=== PATIENT | female | born 1950 | race Caucasian/White ===

== ENCOUNTER 2016-07-20 07:07 | Day surgery (SDC) | payer BC, OTHER ==
[2016-07-19 13:56] VITALS: BMI 33.5
[2016-07-20] MEDS ORDERED: PROPOFOL 20 ML ONE ×3 (07:59)
[2016-07-20] MEDS ORDERED: LIDOCAINE HCL/PF 1% SDV 5ML VIAL ONE (07:59)
[2016-07-20 09:00] VITALS: TEMP 97.5
[2016-07-20 09:17] VITALS: PULSE 55
[2016-07-20 09:54] VITALS: BP 118/66
--- NOTE | 2016-07-23 11:19 | PATH ---
Surgical Pathology Report Patient Name: [facility]. Rec. #: [id number] /Age/Gender: 1950 (Age: 65) / F Account: [id number] Location: [facility]-ENDOSCOPY Taken: 07/20/2016 Received: 07/20/2016 Reported: 07/23/2016 Physicians: Zina Hodge M.D. Specimen(s) Received A: BX 2ND PORTION DUODENUM & BULB B: BX POLYPS GASTRIC FUNDUS C: BX ANTRUM D: BX DISTAL ESOPHAGUS Clinical History GERD, screening Hiatal hernia Final Diagnosis A. DUODENUM, SECOND PORTION, BIOPSY: DUODENAL MUCOSA WITH HETEROTOPIC GASTRIC MUCOSA AND MILD NONSPECIFIC CHRONIC INFLAMMATION. NO HISTOLOGIC EVIDENCE OF GLUTEN SENSITIVE ENTEROPATHY (CELIAC SPRUE) IDENTIFIED. B. STOMACH, FUNDUS, BIOPSY: GASTRIC MUCOSA WITH FOVEOLAR HYPERPLASIA IMMUNOSTAIN FOR H. PYLORI IS NEGATIVE. C. STOMACH, ANTRUM, BIOPSY: FOCAL MILD CHRONIC GASTRITIS. IMMUNOSTAIN FOR H. PYLORI IS NEGATIVE. D. DISTAL ESOPHAGUS, BIOPSY: SQUAMOUS EPITHELIUM WITH PAPILLOMATOSIS SUGGESTIVE OF REFLUX ESOPHAGITIS. NO INTESTINAL METAPLASIA IDENTIFIED (NO DRAPER'S IDENTIFIED). Electronically Signed Bryn Olivo M.D. Gross Description A. Received in formalin, labeled "biopsy second portion of duodenum/bulb" are 4 quan, irregular portions of soft tissue averaging 0.3 cm. in greatest dimension. The specimens are submitted in toto in one cassette. B. Received in formalin, labeled "biopsy polyps of gastric fundus" are 4 quan, irregular portions of soft tissue ranging from 0.1-0.3 cm. in greatest dimension. The specimens are submitted in toto in one cassette. C. Received in formalin, labeled "biopsy antrum" are 2 quan, irregular portions of soft tissue averaging 0.2 cm. in greatest dimension. The specimens are submitted in toto in one cassette. D. Received in formalin, labeled "biopsy distal esophagus" are 2 quan, irregular portions of soft tissue measuring 0.3 and 0.5 cm. in greatest dimension. The specimens are submitted in toto in one cassette. DL/07/20/2016 saudi07/20/2016
== END 2016-07-20 10:09 | disposition home or self-care (01) ==
LOC: JASU-ENDO 07:07
PROVIDERS: ATTEND Internal Medicine Gastroenterology
PROC: 0DB38ZX Excision of Lower Esophagus, Via Natural or Artificial Opening Endoscopic, Diagnostic (ICD-10-PCS; 2016-07-20)
PROC: 0DB68ZX Excision of Stomach, Via Natural or Artificial Opening Endoscopic, Diagnostic (ICD-10-PCS; 2016-07-20)
PROC: 0DB28ZX Excision of Middle Esophagus, Via Natural or Artificial Opening Endoscopic, Diagnostic (ICD-10-PCS; 2016-07-20)
PROC: 0DJD8ZZ Inspection of Lower Intestinal Tract, Via Natural or Artificial Opening Endoscopic (ICD-10-PCS; principal; 2016-07-20 08:00)
DX: Z12.11 Encounter for screening for malignant neoplasm of colon (principal); K57.30 Diverticulosis of large intestine without perforation or abscess without bleeding; K64.8 Other hemorrhoids; R10.13 Epigastric pain; R10.9 Unspecified abdominal pain; K21.9 Gastro-esophageal reflux disease without esophagitis; K44.9 Diaphragmatic hernia without obstruction or gangrene; K31.7 Polyp of stomach and duodenum; K31.89 Other diseases of stomach and duodenum
CPT/HCPCS: 43239; G0121; 88305-TC; 88342-TC

== ENCOUNTER 2017-05-30 20:12 | Emergency (ER) | payer BC, OTHER ==
[2017-05-30 21:34] VITALS: BP 135/73; PULSE 58; TEMP 98.4; BMI 31.1
--- NOTE | 2017-05-30 21:34 | PDOC ---
Rapid Medical Evaluation Chief Complaint: Head/Neck problem Time Seen by Provider: 05/30/17 21:31 Medical Evaluation: Allergies Allergy/AdvReac Type Severity Reaction Status Date / Time cortisone Allergy Verified 07/19/16 13:56 procaine HCl [From Novocain] AdvReac Verified 07/19/16 13:57 05/30/17 21:31 I Have performed a brief in-person evaluation of this patient. c/o trip and fall hit head on the pavement. currently on baby aspirin. no loc. pertinent physical exam findings: patient alert ox3, + frontal hematoma. no cervical tenderness I have ordered the following: Ct head the patient will proceed to the ED for further evaluation.
--- NOTE | 2017-05-30 22:52 | PDOC ---
History of Present Illness - General Chief Complaint: Injury Stated Complaint: FALL INJURY Time Seen by Provider: 05/30/17 21:31 History Source: Patient - History of Present Illness Initial Comments: 05/30/17 22:46 66 year old female c/o headache after trip and fall outside. denies loc Currently on everyday aspirin with hematoma to left frontal scalp. patient reports geberalized bodyache since fall at 8 pm. abrasion to left knee. full rom and weight bearing to left knee. Past History - Past Medical History Allergies/Adverse Reactions: Allergies Allergy/AdvReac Type Severity Reaction Status Date / Time cortisone Allergy Verified 05/30/17 21:32 procaine HCl [From Novocain] AdvReac Verified 05/30/17 21:32 Home Medications: Ambulatory Orders Aspirin [ASA -] 81 mg PO DAILY 07/19/16 Cholecalciferol (Vitamin D3) [Vitamin D3 -] 2,000 unit PO DAILY 07/19/16 Cyanocobalamin (Vitamin B-12) [Vitamin B12] 2,500 mcg PO DAILY 07/19/16 Escitalopram Oxalate [Lexapro -] 10 mg PO DAILY 07/19/16 Nebivolol [Bystolic -] 5 mg PO HS 07/19/16 Ranitidine [Zantac -] 150 mg PO BID 07/19/16 Rosuvastatin Calcium [Crestor] 5 mg PO ASDIR 07/19/16 Ubidecarenone/Vit E Acetate [Co Q-10 100 mg Softgel] 1 each PO DAILY 07/19/16 Valsartan/Hydrochlorothiazide [Valsartan-Hctz 80-12.5 mg Tab] 1 tab PO DAILY 11/28 Anemia: Yes (THALASSEMIA MINOR) Asthma: Yes (TRANSIENT) Cancer: No Cardiac Disorders: No CVA: No COPD: No CHF: No Dementia: No Diabetes: No GI Disorders: Yes (GERD) Disorders: (NEPHROLITHIASIS ESWL) HTN: Yes Hypercholesterolemia: Yes Liver Disease: Yes (FATTY LIVER) Seizures: No - Surgical History Abdominal Surgery: No Appendectomy: No Cardiac Surgery: No Cholecystectomy: No Lung Surgery: No Neurologic Surgery: No Orthopedic Surgery: Yes (LEFT ANKLE FRACTURE WITH HARDWARE 2006) - Suicide/Smoking/Psychosocial Hx Smoking History: Never smoked Have you smoked in the past 12 months: No Information on smoking cessation initiated: No Hx Alcohol Use: No Drug/Substance Use Hx: No Substance Use Type: None Hx Substance Use Treatment: No Review of Systems - Review of Systems Able to Perform ROS?: Yes Is the patient limited Turkmen proficient: No Constitutional: Yes: Symptoms Reported Neurological: Yes: Headache. No: Symptoms reported, See HPI, Numbness, Paresthesia, Pre-Existing Deficit, Seizure, Tingling, Tremors, Weakness, Unsteady Gait, Ataxia, Dizziness, Other *Physical Exam - Vital Signs Last Vital Signs Temp Pulse Resp BP Pulse Ox 98.4 F 58 L 14 135/73 98 05/30/17 21:32 05/30/17 21:32 05/30/17 21:32 05/30/17 21:32 05/30/17 21:32 - Physical Exam General Appearance: Yes: Appropriately Dressed HEENT: positive: Other (hematoma to left frontal scalp) Respiratory/Chest: positive: Lungs Clear, Normal Breath Sounds Cardiovascular: positive: Regular Rhythm, Regular Rate Extremity: positive: Normal Capillary Refill, Normal Inspection, Normal Range of Motion, Other (abrasion to left knee) Integumentary: positive: Normal Color, Dry, Warm ED Treatment Course - RADIOLOGY Radiology Studies Ordered: Category Date Time Status HEAD CT WITHOUT CONTRAST [CT] Stat CT Scan 05/30/17 21:34 Completed Progress Note - Progress Note Progress Note: A: head injury P: ct head: negative neuro exam. concussion precautions. *DC/Admit/Observation/Transfer Diagnosis at time of Disposition: Head injury Qualifiers: Encounter type: initial encounter Qualified Code(s): S09.90XA - Unspecified injury of head, initial encounter Mild concussion Qualifiers: Encounter type: initial encounter Loss of consciousness presence/duration: without LOC Qualified Code(s): S06.0X0A - Concussion without loss of consciousness, initial encounter - Discharge Dispostion Disposition: HOME - Referrals Referrals: Dennis Shaikh MD [Primary Care Provider] - Call tomorrow - Patient Instructions Printed Discharge Instructions: DI for Closed Head Injury Additional Instructions: rest and relax as much as possible. follow up with your doctor as soon as possible. return to the ER if symptoms worsen. - Post Discharge Activity
== END 2017-05-30 23:48 | disposition home or self-care (01) ==
LOC: JERFT 20:12 → JER 20:12
DX: S06.0X0A Concussion without loss of consciousness, initial encounter (principal); S00.83XA Contusion of other part of head, initial encounter; W01.198A Fall on same level from slipping, tripping and stumbling with subsequent striking against other object, initial encounter; Y93.89 Activity, other specified; Y92.89 Other specified places as the place of occurrence of the external cause; I10 Essential (primary) hypertension; E78.00 Pure hypercholesterolemia, unspecified; D56.3 Thalassemia minor; Z87.442 Personal history of urinary calculi; Z79.82 Long term (current) use of aspirin
CPT/HCPCS: 70450-TC; 99281-25

== ENCOUNTER 2023-05-08 05:00 | Day surgery (SDC) | payer OTHER, BC ==
[2023-05-06 12:36] VITALS: BMI 28.8
[2023-05-08 08:44] VITALS: TEMP 98
[2023-05-08 09:47] VITALS: BP 132/59; PULSE 52; RESP 16
== END 2023-05-08 09:42 | disposition home or self-care (01) ==
LOC: JASU-ENDO 05:00
PROVIDERS: ATTEND Internal Medicine Gastroenterology
PROC: 0DB98ZX Excision of Duodenum, Via Natural or Artificial Opening Endoscopic, Diagnostic (ICD-10-PCS; 2023-05-08)
PROC: 0DB78ZX Excision of Stomach, Pylorus, Via Natural or Artificial Opening Endoscopic, Diagnostic (ICD-10-PCS; 2023-05-08)
PROC: 0DB68ZX Excision of Stomach, Via Natural or Artificial Opening Endoscopic, Diagnostic (ICD-10-PCS; 2023-05-08)
PROC: 0DJD8ZZ Inspection of Lower Intestinal Tract, Via Natural or Artificial Opening Endoscopic (ICD-10-PCS; principal; 2023-05-08 08:00)
DX: Z12.11 Encounter for screening for malignant neoplasm of colon (principal); K64.8 Other hemorrhoids; K64.4 Residual hemorrhoidal skin tags; K21.00 Gastro-esophageal reflux disease with esophagitis, without bleeding; K29.50 Unspecified chronic gastritis without bleeding; K44.9 Diaphragmatic hernia without obstruction or gangrene; K31.7 Polyp of stomach and duodenum
CPT/HCPCS: 43239; G0121